=== PATIENT | male | born 1970 | race Caucasian/White ===

== ENCOUNTER → 2024-08-27 | Outpatient (CLI) | payer MEDICARE, MEDICAID, SELFPAY ==
--- NOTE | 2024-08-27 | XR_ITS ---
Examination: PA lateral chest 2 views TECHNIQUE: Upright PA lateral chest 2 views Exam date and time: August 27, 2024 1228 hours Comparison February 06, 2021 INDICATIONS: Smoking history years, diagnosis asthma, coughing SOB several months. FINDINGS: Moderate hyperexpansion Mild enlargement cardiac contour Accentuation basilar bronchovascular markings No lobar pneumonia Prominent osteopenia IMPRESSION: COPD Basilar bronchitis pattern
[2024-08-27 13:27] LABS: Basophils # (Auto) 0.1 Thou/mm3 (0.0-0.2); Basophils % (Auto) 1 % (0-2.5); Eosinophils # (Auto) 0.2 Thou/mm3 (0.0-0.5); Eosinophils % (Auto) 3 % (0-10); Hemoglobin 15.1 g/dL (13.5-16.0); Immature Granulocytes % (Auto) 1 % (0-0); Immature Granulocytes Auto 0.04 Thou/mm3 (0.00-0.00); Lymphocytes # (Auto) 2.3 Thou/mm3 (1.0-4.8); Lymphocytes % (Auto) 30 % (10-50); Mean Corpuscular HGB Conc 35.1 g/dl (31.0-37.0); Mean Corpuscular Hemoglobin 28.9 pg (25.0-35.0); Mean Corpuscular Volume 82 fL (80-100); Monocytes # (Auto) 0.6 Thou/mm3 (0.0-0.8); Monocytes % (Auto) 7 % (0-12); Neutrophils # (Auto) 4.5 Thou/mm3 (1.8-7.7); Neutrophils % (Auto) 59 % (37-80); Nucleated Red Blood Cell % 0 /100 WBC (0); Platelet Count 208 Thou/mm3 (140-440); RDW Standard Deviation 42.3 fL (35.1-43.9); Red Blood Count 5.23 Miln/mm3 (4.50-5.90); White Blood Count 7.6 Thou/mm3 (3.8-10.6)
[2024-08-27 13:41] LABS: Glucose Estimated Average 97 mg/dL (80-131)
[2024-08-27 13:42] LABS: Alanine Aminotransferase 20 U/L (10-49); Albumin, Serum 4.7 gm/dL (3.5-5.0); Albumin/Globulin Ratio 2.2 (1.2-2.2); Alkaline Phosphatase 63 U/L (46-116); Anion Gap 4 (7-16); Aspartate Amino Transferase 14 U/L (0-34); BUN/Creatinine Ratio 13 Ratio (12-20); Bilirubin,Total 0.8 mg/dL (0.3-1.2); Blood Urea Nitrogen 14 mg/dL (9-23); Calcium 9.8 mg/dL (8.3-10.6); Calcium (Corrected) 9.8 mg/dL (8.5-10.1); Cardiac Risk Estimate 4.8 RATIO (4.0-6.7); Chloride 108 mMol/L (98-107); Cholesterol 189 mg/dL (132-200); Creatinine (Component) 1.1 mg/dL (0.6-1.3); Globulin 2.1 gm/dL (2.3-3.5); Glucose 100 mg/dL (74-106); HDL Cholesterol 39 mg/dL (40-60); LDL Cholesterol,Calculated 113 mg/dL (0-130); Osmolality,Calculated 279 (275-295); Phosphorous 4.2 mg/dL (2.4-5.1); Potassium 3.7 mMol/L (3.4-5.1); Sodium 140 mMol/L (136-145); Total Protein 6.8 gm/dL (5.7-8.2); Triglycerides 185 mg/dL (30-150); eGFR > 60 See Note
[2024-08-27 13:43] LABS: Prostate Specific Antigen 6.68 ng/mL (0-4.00)
[2024-08-27 14:08] LABS: Sed Rate (ESR) 5 mm/hr (0-20)
== END | disposition home or self-care (01) ==
LOC: CDIM 11:53 → COPL 12:39
PROVIDERS: PCP Internal Medicine; Referring Provider Internal Medicine; Visit Provider Radiology Diagnostic Radiology
DX: J44.9 Chronic obstructive pulmonary disease, unspecified (principal); R06.02 Shortness of breath; I10 Essential (primary) hypertension; E11.9 Type 2 diabetes mellitus without complications
CPT/HCPCS: 36415; 71046; 80053; 80061; 83036; 83735; 84100; 84153; 85025; 85652

== ENCOUNTER → 2024-12-28 | Outpatient (CLI) | payer MEDICARE, MEDICAID, SELFPAY | END | disposition home or self-care (01) | LOC: SRTX 13:07 | PROVIDERS: PCP Internal Medicine; Referring Provider Psychiatry & Neurology Neurology; Visit Provider Psychiatry & Neurology Neurology | DX: R56.9 Unspecified convulsions (principal) | CPT/HCPCS: 95816 ==

== ENCOUNTER → 2024-12-31 | Outpatient (CLI) | payer MEDICARE, MEDICAID, SELFPAY ==
--- NOTE | 2024-12-31 08:10 | XR_ITS ---
Examination: PA lateral chest 2 views TECHNIQUE: Upright PA lateral chest 2 views Date and time: 12/31/2024 0820 hours Comparison August 27, 2024 INDICATIONS: Preop FINDINGS: Normal heart size Lungs are clear. Osseous structures are demineralized IMPRESSION: No active disease.
--- NOTE | 2024-12-31 09:06 | EKG_ITS ---
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
[2024-12-31 10:03] LABS: Alanine Aminotransferase 18 U/L (10-49); Albumin, Serum 4.7 gm/dL (3.5-5.0); Alkaline Phosphatase 69 U/L (46-116); Anion Gap 5 (7-16); Aspartate Amino Transferase 17 U/L (0-34); BUN/Creatinine Ratio 12 Ratio (12-20); Bilirubin,Total 0.8 mg/dL (0.3-1.2); Blood Urea Nitrogen 13 mg/dL (9-23); Calcium 9.3 mg/dL (8.3-10.6); Calcium (Corrected) 9.3 mg/dL (8.5-10.1); Carbon Dioxide 27.2 mMol/L (20.0-31.0); Chloride 106 mMol/L (98-107); Creatinine (Component) 1.1 mg/dL (0.6-1.3); Globulin 2.4 gm/dL (2.3-3.5); Glucose 106 mg/dL (74-106); Osmolality,Calculated 275 (275-295); Potassium 4.4 mMol/L (3.4-5.1); Sodium 138 mMol/L (136-145); Total Protein 7.1 gm/dL (5.7-8.2); eGFR > 60 See Note
[2024-12-31 10:36] LABS: Lithium < 0.10 mEq/L (1.00-1.20)
== END | disposition home or self-care (01) ==
LOC: CDIM 08:08 → COPL 08:36
PROVIDERS: PCP Internal Medicine; Referring Provider Internal Medicine; Visit Provider Internal Medicine
DX: J44.9 Chronic obstructive pulmonary disease, unspecified (principal); I10 Essential (primary) hypertension; E11.9 Type 2 diabetes mellitus without complications
CPT/HCPCS: 36415; 71046; 80053; 80178; 93005